=== PATIENT | female | born 1985 | race Caucasian/White ===

== ENCOUNTER → 2024-09-29 | Outpatient (CLI) | payer OTHER ==
[~2024-09-29] MED LIST: AMBI10TA PO; BUSP15TA47 PO; CLON0.5T2 PO; DOCU5LIQ PO; FLUO-365 PO; IBUP80TA PO; LAMI25TA PO; NICO14PA TD; OXYC1TAB23 PO; PREN27TA3 PO; TRAZ1TAB6 PO
[2024-09-29 14:18] LABS: C REACTIVE PROTEIN QUANTITATIV 1.22 MG/DL (<1.0)
[2024-09-29 14:19] LABS: RHEUMATOID FACTOR QUANT < 3.5 IU/ML (<14)
[2024-09-29 14:21] LABS: FREE T4 1.31 NG/DL (0.89-1.76); THYROID STIMULATING HORMONE 1.312 uIU/ML (0.55-4.78)
[2024-09-29 14:57] LABS: HEPATITIS C VIRUS ABY INDEX > 11.00 INDEX (<0.8)
[2024-10-02 23:18] LABS: CYCLIC CITRULLINATED PEPTIDE < 16 UNITS (<20)
== END ==
LOC: M LAB 12:12
PROVIDERS: ATTEND Physician Assistant Medical
DX: A69.20 Lyme disease, unspecified (principal); K76.0 Fatty (change of) liver, not elsewhere classified

== ENCOUNTER 2024-12-08 09:26 | Emergency (ER) | payer OTHER ==
[~2024-12-08] VITALS: Ht 162.6 cm; Wt 102.7 kg
[2024-12-08 09:46] VITALS: BP 129/70; TEMP 97.9; O2SAT 95
[2024-12-09] MEDS ORDERED: GABA-1172 (09:46)
[2024-12-09] MEDS ORDERED: METH-1164 (09:46)
[2024-12-09] MEDS ORDERED: LIDO1PAD (09:46)
[2024-12-09] MEDS ORDERED: MELO15TA28 (09:46)
[2024-12-09] MEDS ORDERED: MUPI30CR TOP (14:12)
[2024-12-09] MEDS ORDERED: HYDR-3713 PO (14:12)
[2024-12-09] MEDS ORDERED: CLEO300C2 PO (14:12)
== END 2024-12-08 14:28 | disposition left against medical advice (07) ==
LOC: M ED 09:26
DX: Z53.21 Procedure and treatment not carried out due to patient leaving prior to being seen by health care provider (principal)

== ENCOUNTER 2024-12-09 09:30 | Emergency (ER) | payer OTHER ==
[~2024-12-09] VITALS: Ht 162.6 cm; Wt 100.3 kg
[2024-12-09] MEDS ORDERED: METH-1164 (09:46)
[2024-12-09] MEDS ORDERED: LIDO1PAD (09:46)
[2024-12-09] MEDS ORDERED: GABA-1172 (09:46)
[2024-12-09] MEDS ORDERED: MELO15TA28 (09:46)
[2024-12-09] MEDS: CLINDAMYCIN 900 MG in IV 1 EA IV ONE (11:25)
[2024-12-09] MEDS: KETOROLAC 30 MG/ML 1ML VIAL IV ONE (11:25)
[2024-12-09 11:43] LABS: BASO % 0.2 % (0.0-1.0); EOS # 0.1 10^3/uL (0.0-0.5); EOS % 0.6 % (0.0-3.0); HEMATOCRIT 44.6 % (36.0-47.0); HEMOGLOBIN 14.9 g/dl (12.0-15.5); LYMPH # 1.5 10^3/uL (1.5-5.0); LYMPH % 12.1 % (24.0-44.0); MEAN CORPUSCULAR HEMOGLOBIN 27.9 pg (27.0-33.0); MEAN CORPUSCULAR HGB CONC 33.4 g/dl (32.0-36.5); MEAN CORPUSCULAR VOLUME 83.4 fl (80.0-96.0); MONO # 0.7 10^3/uL (0.0-0.8); MONO % 5.6 % (2.0-8.0); NEUTROPHILS % 81.2 % (36.0-66.0); PLATELET COUNT, AUTOMATED 294 10^3/uL (150-450); RED BLOOD COUNT 5.35 10^6/uL (4.00-5.40); WHITE BLOOD COUNT 12.4 10^3/uL (4.0-10.0)
[2024-12-09 12:10] LABS: BLOOD UREA NITROGEN 14 MG/DL (9-23); C REACTIVE PROTEIN QUANTITATIV 2.72 MG/DL (<1.0); CALCIUM LEVEL 8.5 MG/DL (8.5-10.1); CARBON DIOXIDE LEVEL 24 MMOL/L (20-31); CHLORIDE LEVEL 105 MMOL/L (98-107); CREATININE FOR GFR 0.44 MG/DL (0.55-1.30); GLOMERULAR FILTRATION RATE > 60.0 (>60); GLUCOSE, FASTING 119 MG/DL (60-100); POTASSIUM SERUM 4.3 MMOL/L (3.5-5.1); SODIUM LEVEL 137 MMOL/L (136-145)
[2024-12-09] MEDS ORDERED: ISOVUE-370 76% 100ML VIAL As Ordered ONE (12:42)
[2024-12-09] MEDS: ONDANSETRON 4MG 2ML VIAL IV ONE (12:45)
[2024-12-09] MEDS: MORPHINE 4 MG/ML 1ML VIAL IV ONE (12:45)
[2024-12-09] MEDS ORDERED: MUPI30CR TOP (14:12)
[2024-12-09] MEDS ORDERED: CLEO300C2 PO (14:12)
[2024-12-09] MEDS ORDERED: HYDR-3713 PO (14:12)
[2024-12-09 14:18] VITALS: BP 155/77; TEMP 97.8; O2SAT 98
== END 2024-12-09 14:33 | disposition home or self-care (01) ==
LOC: EDBD 09:30 → M ED 09:30
DX: L03.211 Cellulitis of face (principal); B18.2 Chronic viral hepatitis C; Z88.8 Allergy status to other drugs, medicaments and biological substances; Z79.1 Long term (current) use of non-steroidal anti-inflammatories (NSAID); Z79.2 Long term (current) use of antibiotics; Z79.899 Other long term (current) drug therapy
CPT/HCPCS: 70487; 80048; 85025; 86140; 96365; 96375; 99284; J0737; J1885; J2405; Q9967